=== PATIENT | male | born 1970 | race Caucasian/White ===

== ENCOUNTER → 2024-06-01 | Outpatient (CLI) | payer MEDICARE, BC, SELFPAY ==
--- NOTE | 2024-06-01 14:17 | XR_ITS ---
Examination: Bilateral knees 6 views Bilateral axial knees single view TECHNIQUE: AP oblique lateral right and left knees total 6 views Bilateral axial knees single view total 7 views Exam date and time: June 01, 2024 1513 hours INDICATIONS: Bilateral knee pain beginning 3 months ago. 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
--- NOTE | 2024-06-01 15:30 | XR_ITS ---
Examination: CT chest, without intravenous contrast. Sagittal and coronal 2-D reconstructions. Exam date and time: June 01, 2024 1410 hours INDICATIONS: Nicotine dependence, smoking history 30 years CTDI:vol (mGy) 16.4 DLP: (mGycm) 670 Technique: Multiple 3.0 mm axial sections of the chest to been obtained. Bone and lung density settings are obtained. Sagittal and coronal 2-D reconstructions have been obtained. Low dose protocols were performed. One or more of the following dose reduction techniques were used; automated exposure control, adjustment of the mA and/or KV according to patient size, use of iterative reconstruction technique. Findings: Heavy carotid vascular calcification No thoracic aortic aneurysm dilatation Pulmonary artery segments are not enlarged Heavy coronary artery calcification No paratracheal tracheobronchial or bronchopulmonary adenopathy 6 mm soft pulmonary nodule right upper lobe image 139 2 mm calcified granuloma right lower lobe No pneumonia or pulmonary edema No focal liver or splenic lesion Contracted gallbladder Bilateral renal cortical thinning IMPRESSION: 6 mm soft pulmonary nodule right upper lobe, with this study as baseline recommend 6 month follow-up CT chest without contrast
== END | disposition home or self-care (01) ==
PROVIDERS: Referring Provider Internal Medicine; Visit Provider Internal Medicine
DX: Z12.2 Encounter for screening for malignant neoplasm of respiratory organs (principal); F17.210 Nicotine dependence, cigarettes, uncomplicated; R91.1 Solitary pulmonary nodule; M17.0 Bilateral primary osteoarthritis of knee
CPT/HCPCS: 71271; 73564

== ENCOUNTER 2024-08-05 07:52 | Outpatient (AMB) | payer MEDICARE, BC, SELFPAY ==
[2024-08-05 08:06] VITALS: BP 125/84; PULSE 77; RESP 18; TEMP 36.1; O2SAT 93; BMI 31.1
--- NOTE | 2024-08-05 08:06 | PD.ORTHCLVIS ---
Vital signs 08/05/24 08:06 Height 1.75 m Height Method Stated Weight 95.793 kg Weight Measurement Method Standing Scale BMI 31.1 BP 125/84 Blood Pressure Source Automatic Cuff Blood Pressure Location Left Upper Arm Position Sitting Respiration 18 Pulse 77 Pulse Source Monitor Temp 96.9 F Temp Source Temporal Artery Scan Pulse Oximetry (%) 93 L Oxygen Delivery Method Room Air Med/Allergies Allergies & Medications Allergies No Known Allergies Allergy (Verified 08/05/24 08:08) Medication Reconciliation atorvastatin 80 mg tablet 80 mg PO QDAY High Cholesterol 11/08/19 [History Confirmed 08/05/24] calcifediol 30 mcg capsule,24 hr,extended release ([place]) 30 mcg PO QDAY Kidney Disease 11/08/19 [History Confirmed 08/05/24] clonidine 0.2 mg/24 hr weekly transdermal patch 0.2 mg topical QDAY High Blood Pressure 11/08/19 [History Confirmed 08/05/24] clopidogrel 75 mg tablet 75 mg PO QDAY Blood Thinner 11/08/19 [History Confirmed 08/05/24] gabapentin 400 mg capsule 400 mg PO QDAY Diabetic Neuropathy 11/08/19 [History Confirmed 08/05/24] insulin glargine U-300 conc 300 unit/mL (1.5 mL) subcutaneous pen (Toujeo SoloStar U-300 Insulin) 60 unit subcut QDAY Diabetes 11/08/19 [History Confirmed 08/05/24] losartan 100 mg tablet 100 mg PO QDAY High Blood Pressure 11/08/19 [History Confirmed 08/05/24] metoprolol tartrate 50 mg tablet 100 mg PO BID High Blood Pressure 11/08/19 [History Confirmed 08/05/24] minoxidil 2.5 mg tablet 2.5 mg PO QDAY High Blood Pressure 11/08/19 [History Confirmed 08/05/24] multivitamin 1 cap PO QDAY 11/08/19 [History Confirmed 08/05/24] omega 3 350 mg-dha 235 mg-epa 90 mg-fish oil 597 mg capsule,delay rel ([place]-3) 2 cap PO BID Supplement 11/08/19 [History Confirmed 08/05/24] pantoprazole 40 mg tablet,delayed release 40 mg PO QDAY GERD 11/08/19 [History Confirmed 08/05/24] aspirin 81 mg tablet,delayed release 81 mg PO QDAY 07/10/20 [History Confirmed 08/05/24] docusate sodium 100 mg capsule (Colace) 100 mg PO BID #30 caps 07/10/20 [Rx Confirmed 08/05/24] ferrous sulfate 325 mg (65 mg iron) tablet (FeroSul) 325 mg PO BID 07/10/20 [History Confirmed 08/05/24] levothyroxine 25 mcg tablet 25 mcg PO QDAY 07/10/20 [History Confirmed 08/05/24] furosemide 80 mg tablet 80 mg PO BID 08/08/20 [History Confirmed 08/05/24] docusate sodium 100 mg capsule (Colace) 100 mg PO BID #30 caps 08/09/20 [Rx Confirmed 08/05/24] hydrocodone 5 mg-acetaminophen 325 mg tablet ([place]) 1 tab PO Q6H PRN pain (scale score 7-10) #15 tabs 08/09/20 [Rx Confirmed 08/05/24] albuterol sulfate 2 mg tablet 2 mg PO Q8H 03/10/23 [History Confirmed 08/05/24] carvedilol 6.25 mg tablet 6.25 mg PO BID 03/10/23 [History Confirmed 08/05/24] ipratropium 0.5 mg-albuterol 3 mg (2.5 mg base)/3 mL nebulization soln 3 ml inhalation QID PRN 03/10/23 [History Confirmed 08/05/24] sacubitril 24 mg-valsartan 26 mg tablet (Entresto) 1 tab PO BID 03/10/23 [History Confirmed 08/05/24] Exam Exam Patient is in no acute distress and is cooperative with the examination today. Breathing is nonlabored. In no respiratory distress. Bilateral extremities were evaluated and demonstrates sensation intact to light touch. Palpable pedal pulses are present. No significant edema is present. Bilateral hips were examined. The patient has no pain with log roll of the hips. Internal rotation to 30 degrees and external rotation to 30 degrees is painless. Negative FADIR. The left knee was examined. The left knee is in neutral alignment. Range of motion from 0-120 degrees. Knee is stable to varus and valgus as well as AP translation with <5mm. Patient has a negative [place]. There is no pain with patellofemoral compression and no crepitus noted. The knee is Tender to palpation over the patella tendon only The right knee was also examined. The right knee is in neutral alignment. Range of motion from 0-120 degrees. Knee is stable to varus and valgus as well as AP translation with <5mm. Patient has a negative [place]. There is no pain with patellofemoral compression and no crepitus noted. The knee is Tenderness to palpation over the patella tendon just Bilateral knee x-rays are nonweightbearing. This demonstrates mild arthritis Assessment and Plan Problem List (1) Degenerative arthritis of knee, bilateral: Status: Acute (2) Patellar tendonitis: Status: Acute Plan: Patient is a 64-year-old male with patella tendinitis and arthritis of his bilateral knees. I would like to get weightbearing x-rays. He is are in physical therapy. We discussed Tylenol as well as other anti-inflammatories. He does not want an injection. We will see him back after his x-rays are done. We will likely treat him conservatively for his patella tendonitis. Office Procedures GNS Level of Care Nursing/Assessment Patient Status: Initial/New Patient Nursing Assessment/Reassesment: Medication Reconciliation, Update PMH in EMR and Vital Signs Coordination of Care: Complex Care and Chronic Disease 1-5, Education Complex Pt/Fam, Consent,records obtained, informed consent, 1 Ins Authorization, Results/Orders obtained and Staff clarify orders New Patient Charge New Patient Point Assignment: 1109 New Patient Point Charge: SHIP/REC/DOC CONTROL Level 3 ([id number]) MA Intake Visit Data Collection New Patient or Established: New Patient (never been to [facility]) Reason for Visit:: BILATERAL KNEE PAIN Seen by Clinical Staff ONLY (RN/MA): No [employer] Vice President Required: No PCP or OBGYN visit in last 3 months: Yes Hx Now: No Do You Feel Safe at Home: Yes Authorities Contacted: N/A Questionairres Past Medical History Past Medical History Have you ever been diagnosed with any of the following: Neurological Problems Seizures: No Cardiology Problems Myocardial Infarction: Yes Angina: Yes Coronary Artery Disease: Yes Hypercholesterolemia: Yes Congestive Heart Failure: No Edema: No Cellulitis: No Hypertension: Yes Respiratory Problems Chronic Obstructive Pulmonary Disease (COPD): No Asthma: No Tuberculosis: No Sleep Apnea: No Stomache/Intestinal Problems Hepatitis: No Gastroesophageal Reflux Disease: Yes Genital/Urinary Problems Renal Disease: Yes Dialysis: Yes (mon, wed, fri) Endocrine Problems Diabetes Mellitus Type 1: No Diabetes Mellitus Type 2: Yes Hypothyroidism: Yes Blood Problems Anemia: Yes Sickle Cell Disease: No Other Problems Hospitalization: Yes (07/17/20) Shingles: No Falls: No Blood Transfusions: No Blood Transfusion Reaction: No Anesthesia Reactions: No Chemotherapy: No Radiation Therapy: No MRSA: No Chicken Pox: Yes Measles: No Mumps: No Cancer: No Surgical History Coronary Artery Bypass Graft: Yes Pacemaker: Yes Subjective Visit Visit for: new patient and knee (BILATERAL) Immunization / Flu Flu Vaccine in the Last 12 Months: Yes Flu Vaccine Exclusion Criteria: Already Received History of Present Illness Chief complaint: Bilateral knee pain Date of injury / onset of symptoms: 07/2023 64-year-old male with bilateral knee pain that has been ongoing for over a year. He reports that his back and plan fasciitis issues as well. He is using a cane. The pain is not miserable. The pain is primarily right below the patella. He is on dialysis currently Personal History Occupation: RETIRED Hobbies: NONE Red flag PMH: other (specify) Pain Pain level (0-10): 6 Pain duration: WITH MOVEMENT Pain location: anterior Pain quality: sharp and dull Pain timing: increases with activity and stairs Associated signs & symptoms: none Ambulatory data Ambulatory device: cane Treatments Improvement with previous injections: No Improvement with PT: No Improvement with NSAIDS: no Review of Systems Review of Systems: All systems negative unless otherwise noted in HPI.
== END 2024-08-05 08:19 | disposition home or self-care (01) ==
LOC: HODSRG 07:52
PROVIDERS: Supervising Provider Orthopaedic Surgery Adult Reconstructive Orthopaedic Surgery; Visit Provider Orthopaedic Surgery Adult Reconstructive Orthopaedic Surgery
DX: M17.0 Bilateral primary osteoarthritis of knee (principal); M76.52 Patellar tendinitis, left knee; M76.51 Patellar tendinitis, right knee; I10 Essential (primary) hypertension; E78.00 Pure hypercholesterolemia, unspecified; I25.10 Atherosclerotic heart disease of native coronary artery without angina pectoris; E11.9 Type 2 diabetes mellitus without complications; K21.9 Gastro-esophageal reflux disease without esophagitis; I25.2 Old myocardial infarction; E03.9 Hypothyroidism, unspecified; Z95.1 Presence of aortocoronary bypass graft; Z95.0 Presence of cardiac pacemaker
CPT/HCPCS: 99203; G0463